=== PATIENT | female | born 1955 | race Caucasian/White ===

== ENCOUNTER 2024-05-10 09:23 | Outpatient (CLI) | payer OTHER | END 2024-05-10 09:26 | disposition home or self-care (01) | LOC: SONOGRAMA 09:23 | PROVIDERS: ATTEND Pathology Anatomic Pathology & Clinical Pathology | DX: E04.2 Nontoxic multinodular goiter (principal) ==

== ENCOUNTER 2024-11-08 10:32 | Outpatient (CLI) | payer OTHER | END 2024-11-08 10:41 | disposition home or self-care (01) | LOC: SONOGRAMA 10:32 | PROVIDERS: ATTEND Pathology Anatomic Pathology & Clinical Pathology | DX: D34 Benign neoplasm of thyroid gland (principal); E07.89 Other specified disorders of thyroid; E04.2 Nontoxic multinodular goiter ==